=== PATIENT | female | born 1985 | race Caucasian/White ===

== ENCOUNTER 2018-05-31 05:09 | Day surgery (SDC) | payer OTHER ==
[2018-05-23 12:28] VITALS: BMI 26.6
[2018-05-31] MEDS ORDERED: MIDAZOLAM HCL 2 MG/2 ML SINGLE DOSE VIAL ONE (13:58)
[2018-05-31] MEDS ORDERED: DEXAMETHASONE SOD PHOSPHATE 4 MG/1 ML VIAL ONE (14:00)
[2018-05-31] MEDS ORDERED: ROCURONIUM BROMIDE 50 MG/5 ML VIAL ONE (14:00)
[2018-05-31] MEDS ORDERED: SUCCINYLCHOLINE CHLORIDE 200 MG/10 ML VIAL ONE (14:00)
[2018-05-31] MEDS ORDERED: KETOROLAC TROMETHAMINE 30 MG/1 ML VIAL ONE (14:00)
[2018-05-31] MEDS ORDERED: LIDOCAINE HCL/PF 2% SDV 5ML VIAL ONE (14:06)
[2018-05-31] MEDS ORDERED: PROPOFOL 20 ML ONE (14:06)
--- NOTE | 2018-05-31 14:18 | HP ---
Admitting History and Physical - Admission Chief Complaint: Multiparity History of Present Illness: 32 yo Para 2, LMP 05/10/18, is pre op for bilateral tubal ligation. History Source: Patient Limitations to Obtaining History: No Limitations - Past Medical History ...LMP: 05/10/18 ...: No ...Para: 2 - Past Surgical History Past Surgical History: Yes: - Smoking History Smoking history: Never smoked Have you smoked in the past 12 months: No - Alcohol/Substance Use Hx Alcohol Use: No - Social History ADL: Independent History of Recent Travel: No Home Medications - Allergies Allergies/Adverse Reactions: Allergies Allergy/AdvReac Type Severity Reaction Status Date / Time No Known Allergies Allergy Verified 05/31/18 13:26 - Home Medications Home Medications: Ambulatory Orders Ascorbic Acid [Vitamin C] 1 tab PO DAILY 05/23/18 Family Disease History - Family Disease History Family History: Unremarkable Review of Systems - Review of Systems Constitutional: reports: No Symptoms Eyes: reports: No Symptoms HENT: reports: No Symptoms Neck: reports: No Symptoms Cardiovascular: reports: No Symptoms Respiratory: reports: No Symptoms Gastrointestinal: reports: No Symptoms Genitourinary: reports: No Symptoms Breasts: reports: No Symptoms Reported Musculoskeletal: reports: No Symptoms Integumentary: reports: No Symptoms Neurological: reports: No Symptoms Endocrine: reports: No Symptoms Hematology/Lymphatic: reports: No Symptoms Psychiatric: reports: No Symptoms Pain Intensity: 0 Physical Examination Vital Signs: Vital Signs Temperature 98.5 F 05/31/18 13:37 Pulse Rate 70 05/31/18 13:37 Respiratory Rate 16 05/31/18 13:37 Blood Pressure 111/64 05/31/18 13:37 O2 Sat by Pulse Oximetry (%) 98 05/31/18 13:54 Constitutional: Yes: Well Nourished Eyes: Yes: Conjunctiva Clear HENT: Yes: Atraumatic Neck: Yes: Supple Cardiovascular: Yes: Regular Rate and Rhythm Respiratory: Yes: Regular Gastrointestinal: Yes: Normal Bowel Sounds Breast(s): Yes: WNL Musculoskeletal: Yes: WNL Extremities: Yes: WNL Neurological: Yes: Alert, Oriented ...Motor Strength: WNL Psychiatric: Yes: Alert, Oriented Problem List - Problems (1) Multiparity Code(s): Z64.1 - PROBLEMS RELATED TO MULTIPARITY Assessment/Plan Multiparity Pre op for BTL Consent signed Anesthesia to see patient
[2018-05-31] MEDS ORDERED: GLYCOPYRROLATE 0.2 MG/1 ML VIAL ONE (14:58)
[2018-05-31] MEDS ORDERED: NEOSTIGMINE METHYLSULFATE 0.5 MG/ML - 10 ML MDV ONE (14:58)
--- NOTE | 2018-05-31 15:03 | OP ---
Operative Note - Note: Operative Date: 05/31/18 Pre-Operative Diagnosis: Multiparity Operation: Laparoscopic bilateral tubal ligation Findings: Normal pelvis Surgeon: Lilian Crouch Anesthesia: General Specimens Removed: None Estimated Blood Loss (mls): 3
[2018-05-31] MEDS ORDERED: ONDANSETRON 4 MG/2 ML VIAL IVPUSH PRN (15:40)
[2018-05-31] MEDS ORDERED: LACTATED RINGERS SOLUTION 1,000 ML IV SCH (15:45)
[2018-05-31 16:49] VITALS: TEMP 97.8
[2018-05-31] MEDS ORDERED: oxyCODONE HCL 5 MG TABLET ONE (17:56)
[2018-05-31] MEDS ORDERED: oxyCODONE HCL 5 MG TABLET PO PRN (18:35)
[2018-05-31 20:18] VITALS: BP 110/70; PULSE 80
--- NOTE | 2018-06-21 12:04 | OP ---
DATE OF OPERATION: 05/31/2018 PREOPERATIVE DIAGNOSIS: Multiparity, desires permanent sterilization. POSTOPERATIVE DIAGNOSIS: Multiparity, desires permanent sterilization. PROCEDURE: Laparoscopic bilateral tubal ligation. SURGEON: Lilian Crouch MD ANESTHESIA: General. COMPLICATIONS: None. ESTIMATED BLOOD LOSS: mL. DESCRIPTION OF PROCEDURE: Patient was taken to the operating room, where general anesthesia was administered. Patient was then placed in lithotomy position. She was then prepped and draped in proper sterile fashion. A weighted speculum was placed in the vagina. The anterior lip of the cervix was grasped with a single-tooth tenaculum. After placing Solorzano, the HUMI uterine manipulator was inserted into the uterus as a means to manipulate the uterus. Attention was then turned to the abdomen, where a 5-mm skin incision was made in the umbilical fold. The Veress needle was carefully introduced into the peritoneal cavity while tenting the abdominal wall. Intraperitoneal placement was confirmed by use of the water sterile syringe and drop in intraabdominal pressure with insufflation of CO2 gas. The trocar and sleeve were then advanced without difficulty into the abdomen, where intraabdominal placement was confirmed by the laparoscope. Pneumoperitoneum was obtained using 3 L of CO2 gas. The 5-mm trocar and sleeve were then advanced without difficulty into the abdomen, where intraabdominal placement was confirmed by the laparoscope. A second skin incision was made 2 cm above the pubic symphysis in the midline. A second trocar and sleeve were then advanced under direct visualization. A survey of the patients abdomen revealed normal anatomy. Then, the LigaSure was used to grab the right tube. The 3-cm segment of the tube was then cauterized in 3 separate areas. Complete blanching of the portion of the tube was noted. This same procedure was performed on the left side. Then, the instruments were removed. The patient was taken out of lithotomy position. The Solorzano catheter and the HUMI were removed, and the incision was closed using Dermabond, and patient was then taken to PACU in stable condition. Tana [id number]
== END 2018-05-31 18:50 | disposition home or self-care (01) ==
LOC: JASU-SURG 05:09
PROVIDERS: ATTEND Obstetrics & Gynecology
PROC: 0U574ZZ Destruction of Bilateral Fallopian Tubes, Percutaneous Endoscopic Approach (ICD-10-PCS; principal; 2018-05-31 14:30)
DX: Z30.2 Encounter for sterilization (principal)
CPT/HCPCS: 84703; 94760

== ENCOUNTER 2024-11-26 06:57 | Day surgery (SDC) | payer OTHER ==
[2024-11-19 13:14] VITALS: BMI 25.0
[2024-11-26] MEDS ORDERED: PROPOFOL 40 ML ONE (11:53)
[2024-11-26] MEDS ORDERED: SUCCINYLCHOLINE CHLORIDE 200 MG/10 ML SYRINGE ONE (11:53)
[2024-11-26] MEDS ORDERED: BUPIVACAINE HCL/PF 0.5% (5MG/ML) 10 ML VIAL ONE (11:53)
[2024-11-26] MEDS ORDERED: LIDOCAINE HCL 1%, 10 MG/ML (20ML VIAL) ONE (11:53)
[2024-11-26] MEDS ORDERED: MIDAZOLAM HCL 2 MG/2 ML SINGLE DOSE VIAL ONE (11:53)
[2024-11-26] MEDS ORDERED: ONDANSETRON 4 MG/2 ML VIAL ONE (12:06)
[2024-11-26] MEDS ORDERED: KETOROLAC TROMETHAMINE 30 MG/1 ML VIAL ONE (12:06)
[2024-11-26] MEDS ORDERED: DEXAMETHASONE SOD PHOSPHATE 4 MG/1 ML VIAL ONE (12:06)
[2024-11-26] MEDS: LIDOCAINE HCL 1%, 10 MG/ML (20ML VIAL) INF ONE (12:21)
[2024-11-26] MEDS: BUPIVACAINE HCL/PF 0.5% (5MG/ML) 10 ML VIAL IJ ONE (12:21)
[2024-11-26] MEDS ORDERED: ONDANSETRON 4 MG/2 ML VIAL IVPUSH PRN (13:02)
[2024-11-26] MEDS ORDERED: ACETAMINOPHEN INJECTION 100 ML ONE (13:27)
[2024-11-26] MEDS: ACETAMINOPHEN 1000 MG/100 ML BAG IVPB ONE (13:28)
[2024-11-26] MEDS: LACTATED RINGERS SOLUTION 1,000 ML IV SCH (13:30)
[2024-11-26 14:47] VITALS: RESP 16; TEMP 97.3
[2024-11-26 16:00] VITALS: BP 127/70; PULSE 58
== END 2024-11-26 15:40 | disposition home or self-care (01) ==
LOC: JASU-SURG 06:57
PROVIDERS: ATTEND Surgery
PROC: 0JB80ZZ Excision of Abdomen Subcutaneous Tissue and Fascia, Open Approach (ICD-10-PCS; principal; 2024-11-26 11:00)
DX: N80.C11 Endometriosis of the anterior abdominal wall, fascia and muscular layers (principal)
CPT/HCPCS: 81025; 88304-TC; 94760